=== PATIENT | female | born 1945 | race Caucasian/White ===

== ENCOUNTER 2017-01-06 22:41 | Emergency (ER) | payer MEDICARE, MEDICAID ==
[~2017-01-06] VITALS: Ht 167.6 cm; Wt 44.0 kg
[~2017-01-06 22:41] MED LIST: ATOR-2 PO; BACL-19 PO; CAPT25TA3 PO; CARB200T4 PO; CEFU500T PO; CLOP75TA52 PO; FENO145T13 PO; GABA300C10 PO; HYDR-3245 PO; HYDR2TAB29 PO; LANS30TA6 PO; MECL12.52 PO; MELO15TA24 PO; METH4TAB2 PO; METH5TAB6 PO; METO25TA35 PO; NITR100C56 PO; OXYC15TA PO; PROP120C3 PO; SERT100T5 PO; SOLI5TAB2 PO
[2017-01-06] MEDS ORDERED: MORPHINE SULFATE 4 MG/ML, 1ML IVPush PRN (23:00)
[2017-01-06] MEDS ORDERED: MAALOX/HYOSCYAMINE/LIDOCAINE 45 ML BTL PO ONE (23:00)
[2017-01-06] MEDS ORDERED: ONDANSETRON 2MG/ML, 2ML IVPush ONE (23:00)
[2017-01-06] MEDS ORDERED: MAALOX/HYOSCYAMINE/LIDOCAINE 45 ML BTL ONE (23:03)
[2017-01-06] MEDS ORDERED: ONDANSETRON 2MG/ML, 2ML ONE (23:03)
[2017-01-06 23:14] LABS: HEMATOCRIT 48.2 % (34.6-47.8); HEMOGLOBIN 15.8 g/dL (11.7-16.4); WHITE BLOOD COUNT 7.4 x10^3/uL (3.4-10)
[2017-01-06 23:23] LABS: BLOOD UREA NITROGEN 15 mg/dL (7-18)
[2017-01-06 23:28] LABS: ASPARTATE AMINO TRANSFERASE 28 U/L (15-37); IS PT STATUS REG ER OR PRE ER? YES
[2017-01-06] MEDS ORDERED: SULF1TAB24 PO (23:34)
[2017-01-06] MEDS ORDERED: CLOP75TA52 PO (23:34)
[2017-01-07] MEDS ORDERED: OMNIPAQUE 350 MG/ML, 100ML BOTTLE ONE (00:02)
[2017-01-07] MEDS ORDERED: HYDROmorphone 1 MG/ML, 1ML ONE (00:48)
[2017-01-07] MEDS ORDERED: HYDROmorphone 1 MG/ML, 1ML IV ONE (01:00)
[2017-01-07] MEDS ORDERED: SODIUM CHLORIDE 0.9%, 500ML IVBOLUS ONE (01:00)
[2017-01-07] MEDS ORDERED: FAMOTIDINE 20 MG/2 ML ONE (01:22)
[2017-01-07] MEDS ORDERED: ONDANSETRON 2MG/ML, 2ML ONE (01:22)
[2017-01-07] MEDS ORDERED: FAMOTIDINE 20 MG/2 ML IVPush ONE (01:30)
[2017-01-07] MEDS ORDERED: ONDANSETRON 2MG/ML, 2ML IVPush ONE (01:30)
[2017-01-07 01:32] VITALS: BP 110/61
== END 2017-01-07 02:15 | disposition home or self-care (01) ==
LOC: ED 23:16
DX: K29.00 Acute gastritis without bleeding (principal); E87.1 Hypo-osmolality and hyponatremia; G89.29 Other chronic pain; M54.9 Dorsalgia, unspecified; I10 Essential (primary) hypertension; Z86.73 Personal history of transient ischemic attack (TIA), and cerebral infarction without residual deficits; Z88.5 Allergy status to narcotic agent; Z88.6 Allergy status to analgesic agent; F17.200 Nicotine dependence, unspecified, uncomplicated
CPT/HCPCS: 36415; 71010; 71275; 80053; 83690; 84484; 85025; 93005; 96361; 96374; 96375; 96376; 99285; J1170; J2405; J7040; Q9967; S0028

== ENCOUNTER 2017-04-07 12:12 | Inpatient (IN) | payer MEDICARE, MEDICAID ==
[~2017-04-07] VITALS: Ht 167.6 cm; Wt 60.3 kg
[~2017-04-07 12:12] MED LIST changes: +SULF1TAB24 PO
[2017-04-07] MEDS ORDERED: FLUCONAZOLE 200 MG TABLET PO SCH (13:00)
[2017-04-07] MEDS ORDERED: SODIUM CHLORIDE FLUSH 10ML SYR IVF ONE (13:00)
[2017-04-07 13:07] LABS: BASOPHILS % (AUTO) 0 % (0-1); EOSINOPHILS % (AUTO) 0 % (1-7); LYMPHOCYTES # (AUTO) 0.78 x10^3/uL (1-3.4); LYMPHOCYTES % (AUTO) 8 % (22-44); MD NO; MEAN CORPUSCULAR HEMOGLOBIN 33.1 pg (27.0-34.8); MEAN CORPUSCULAR HGB CONC 33.6 g/dL (32.4-35.8); MEAN CORPUSCULAR VOLUME 98.5 fL (80-100); MEAN PLATELET VOLUME 10.2 fL (7.4-10.4); MONOCYTES # (AUTO) 0.41 x10^3/uL (0.2-0.8); MONOCYTES % (AUTO) 4 % (2-9); NEUTROPHILS # (AUTO) 8.13 x10^3/uL (1.8-6.8); NEUTROPHILS % (AUTO) 87 % (42-75); PLATELET COUNT 217 x10^3/uL (130-400); RED CELL DISTRIBUTION WIDTH 18.3 % (9.6-15.2)
[2017-04-07 13:14] LABS: INTERNATIONAL NORMALIZED RATIO 1.34 (0.93-1.1); PROTHROMBIN TIME 13.7 Seconds (9.6-11.5)
[2017-04-07 13:18] LABS: ALANINE AMINOTRANSFERASE 173 U/L (12-78); ALBUMIN 2.2 g/dL (3.4-5.0); ANION GAP 10 mmol/L (5-15); CALCIUM 7.9 mg/dL (8.5-10.1); CHLORIDE 97 mmol/L (98-107); CREATININE 0.38 mg/dL (0.55-1.02)
[2017-04-07 13:22] LABS: ALKALINE PHOSPHATASE 95 U/L (45-117); BILIRUBIN,TOTAL 2.9 mg/dL (0.2-1.0); TOTAL PROTEIN 5.8 g/dL (6.4-8.2); TROPONIN I 0.042 ng/mL (0.000-0.045)
[2017-04-07] MEDS ORDERED: CEFTRIAXONE PMX 1GM/50ML 50 ML IVPB ONE (15:00)
[2017-04-07] MEDS ORDERED: AZITHROMYCIN 500 MG in SODIUM CHLORIDE 0.9% 250 ML IVPB ONE (15:00)
[2017-04-07 15:09] LABS: CLOSTRIDIUM DIFFICILE ANTIGEN NEGATIVE; CLOSTRIDIUM DIFFICILE TOXIN NEGATIVE (Negative)
[2017-04-07] MEDS ORDERED: CEFTRIAXONE PMX 1GM/50ML 50 ML ONE (15:14)
[2017-04-07 16:40] VITALS: BP 147/82
[2017-04-07 17:00] VITALS: BP 147/82
[2017-04-07] MEDS ORDERED: hydrALAzine 20 MG/ML, 1ML IVPush PRN (17:00)
[2017-04-07] MEDS ORDERED: ONDANSETRON 2MG/ML, 2ML IVPush PRN (17:00)
[2017-04-07] MEDS: NYSTATIN TOPICAL POWDER 15GM TP SCH ×3 (17:00→23:07)
[2017-04-07] MEDS: LACTATED RINGERS 1,000 ML IV SCH (17:00)
[2017-04-07] MEDS ORDERED: DIPHENOXYLATE/ATROPINE TABLET PO PRN (17:00)
[2017-04-07] MEDS ORDERED: ACETAMINOPHEN 325 MG TABLET PO PRN (17:00)
[2017-04-07] MEDS: ENOXAPARIN 40 MG/0.4 ML SQ SCH (17:34)
[2017-04-07] MEDS ORDERED: ALBUTEROL/IPRATROPIUM 2.5MG/0.5MG, 3 ML NPPB PRN (19:30)
[2017-04-07] MEDS: MECLIZINE 12.5 MG TABLET PO SCH (20:47)
[2017-04-07] MEDS: ATORVASTATIN 80 MG TABLET PO SCH (20:47)
[2017-04-07] MEDS: BACLOFEN 10 MG TABLET PO SCH (20:47)
[2017-04-07] MEDS: CARBAMAZEPINE 200 MG TABLET PO SCH (20:48)
[2017-04-07] MEDS: GABAPENTIN 300 MG CAPSULE PO SCH (20:50)
[2017-04-07] MEDS: METOPROLOL TARTRATE 25 MG TABLET PO SCH (20:51)
[2017-04-07 20:52] VITALS: BP 127/67
[2017-04-07] MEDS ORDERED: OMEPRAZOLE 20 MG CAPSULE.DR PO SCH (21:00)
[2017-04-07 21:23] LABS: CULTURE INDICATED? YES; MICROSCOPIC INDICATED
[2017-04-07 23:04] VITALS: BP 139/61
[2017-04-08] MEDS: CEFTRIAXONE PMX 1GM/50ML 50 ML IV SCH ×2 (01:56→12:11)
[2017-04-08 02:00] VITALS: BP 135/74
[2017-04-08 06:11] LABS: BASOPHILS # (AUTO) 0.02 x10^3/uL (0-0.1); BASOPHILS % (AUTO) 0 % (0-1); EOSINOPHILS % (AUTO) 0 % (1-7); LYMPHOCYTES # (AUTO) 0.75 x10^3/uL (1-3.4); LYMPHOCYTES % (AUTO) 9 % (22-44); MD NO; MEAN CORPUSCULAR HEMOGLOBIN 33.1 pg (27.0-34.8); MEAN CORPUSCULAR HGB CONC 33.5 g/dL (32.4-35.8); MEAN CORPUSCULAR VOLUME 98.6 fL (80-100); MEAN PLATELET VOLUME 10.6 fL (7.4-10.4); MONOCYTES # (AUTO) 0.49 x10^3/uL (0.2-0.8); MONOCYTES % (AUTO) 6 % (2-9); NEUTROPHILS # (AUTO) 6.93 x10^3/uL (1.8-6.8); NEUTROPHILS % (AUTO) 85 % (42-75); PLATELET COUNT 205 x10^3/uL (130-400); RED BLOOD COUNT 4.46 x10^6/uL (3.82-5.3)
[2017-04-08 06:22] LABS: ANION GAP 11 mmol/L (5-15); CHLORIDE 97 mmol/L (98-107)
[2017-04-08 06:27] LABS: ALANINE AMINOTRANSFERASE 167 U/L (12-78); ALKALINE PHOSPHATASE 92 U/L (45-117); BILIRUBIN,TOTAL 2.1 mg/dL (0.2-1.0); CREATININE 0.37 mg/dL (0.55-1.02); TOTAL PROTEIN 5.4 g/dL (6.4-8.2)
[2017-04-08] MEDS: OXYcodone IR 5MG TABLET PO PRN ×2 (06:42→16:05)
[2017-04-08] MEDS: ALBUTEROL/IPRATROPIUM 2.5MG/0.5MG, 3 ML NPPB SCH ×2 (06:53→20:30)
[2017-04-08 06:55] VITALS: BP 145/73
[2017-04-08] MEDS ORDERED: POTASSIUM PHOSPHATE 44 MEQ in SODIUM CHLORIDE 0.9% 500 ML IV ONE (07:30)
[2017-04-08] MEDS ORDERED: MAGNESIUM SULFATE PMX 2GM/50ML 50 ML IV ONE (07:30)
[2017-04-08] MEDS: NICOTINE 21 MG/24 HR PATCH.TD24 TD SCH (08:01)
[2017-04-08] MEDS: CARBAMAZEPINE 200 MG TABLET PO SCH ×2 (08:02→20:50)
[2017-04-08] MEDS: BACLOFEN 10 MG TABLET PO SCH ×2 (08:02→20:50)
[2017-04-08] MEDS: CLOPIDOGREL 75 MG TABLET PO SCH (08:02)
[2017-04-08] MEDS: OMEPRAZOLE 20 MG CAPSULE.DR PO SCH ×2 (08:02→16:05)
[2017-04-08] MEDS: GABAPENTIN 300 MG CAPSULE PO SCH ×2 (08:02→20:50)
[2017-04-08] MEDS: METOPROLOL TARTRATE 25 MG TABLET PO SCH ×2 (08:02→20:50)
[2017-04-08] MEDS: MECLIZINE 12.5 MG TABLET PO SCH ×3 (08:02→20:49)
[2017-04-08] MEDS: SERTRALINE 100MG TABLET PO SCH (08:02)
[2017-04-08] MEDS: NYSTATIN TOPICAL POWDER 15GM TP SCH ×3 (08:02→20:49)
[2017-04-08] MEDS: FENOFIBRATE 145 MG TABLET PO SCH (08:02)
[2017-04-08] MEDS: TEMPLATE NON-FORMULARY MED. (Solifenacin Succinate** (Vesicare**) 5 MG) PO SCH (09:00)
[2017-04-08] MEDS ORDERED: ALBUTEROL/IPRATROPIUM 2.5MG/0.5MG, 3 ML NPPB SCH (09:00)
[2017-04-08 12:54] VITALS: BP 116/65
[2017-04-08] MEDS ORDERED: FLUCONAZOLE 200 MG TABLET PO ONE (13:00)
[2017-04-08] MEDS: ENOXAPARIN 40 MG/0.4 ML SQ SCH (16:05)
[2017-04-08] MEDS: LACTATED RINGERS 1,000 ML IV SCH (17:32)
[2017-04-08 20:13] VITALS: BP 117/69
[2017-04-08] MEDS: ATORVASTATIN 80 MG TABLET PO SCH (20:50)
[2017-04-09] MEDS: CEFTRIAXONE PMX 1GM/50ML 50 ML IV SCH (01:06)
[2017-04-09 02:06] VITALS: BP 96/57
[2017-04-09 06:36] VITALS: BP 151/76
[2017-04-09] MEDS: LACTATED RINGERS 1,000 ML IV SCH (07:00)
[2017-04-09 07:45] VITALS: BP 149/86
[2017-04-09] MEDS: METOPROLOL TARTRATE 25 MG TABLET PO SCH ×2 (08:15→20:58)
[2017-04-09] MEDS: NYSTATIN TOPICAL POWDER 15GM TP SCH ×3 (08:15→21:23)
[2017-04-09] MEDS: BACLOFEN 10 MG TABLET PO SCH ×2 (08:15→20:58)
[2017-04-09] MEDS: MECLIZINE 12.5 MG TABLET PO SCH ×3 (08:15→20:57)
[2017-04-09] MEDS: CLOPIDOGREL 75 MG TABLET PO SCH (08:15)
[2017-04-09] MEDS: OXYcodone IR 5MG TABLET PO PRN (08:15)
[2017-04-09] MEDS: SERTRALINE 100MG TABLET PO SCH (08:15)
[2017-04-09] MEDS: GABAPENTIN 300 MG CAPSULE PO SCH ×2 (08:15→20:58)
[2017-04-09] MEDS: CARBAMAZEPINE 200 MG TABLET PO SCH ×2 (08:15→20:58)
[2017-04-09] MEDS: TEMPLATE NON-FORMULARY MED. (Solifenacin Succinate** (Vesicare**) 5 MG) PO SCH (08:16)
[2017-04-09] MEDS: OMEPRAZOLE 20 MG CAPSULE.DR PO SCH ×2 (08:16→16:54)
[2017-04-09] MEDS: NICOTINE 21 MG/24 HR PATCH.TD24 TD SCH (08:16)
[2017-04-09] MEDS: FENOFIBRATE 145 MG TABLET PO SCH (08:21)
[2017-04-09] MEDS: ALBUTEROL/IPRATROPIUM 2.5MG/0.5MG, 3 ML NPPB SCH ×2 (09:40→19:39)
[2017-04-09] MEDS: FLUTICASONE/VILANTEROL 100-25MCG/INH INH SCH (10:16)
[2017-04-09 10:45] LABS: GAMMA GLUTAMYL TRANSPEPTIDASE 174 U/L (5-55)
[2017-04-09 11:00] LABS: CREATINE KINASE, TOTAL 1363 U/L (26-192)
[2017-04-09] MEDS ORDERED: INSULIN ASPART 100 UNITS/ML, PEN SQ-INSULIN STA (12:24)
[2017-04-09 14:25] VITALS: BP 112/68
[2017-04-09] MEDS: SODIUM CHLORIDE 0.9% 1,000 ML IV SCH (16:00)
[2017-04-09] MEDS: ENOXAPARIN 40 MG/0.4 ML SQ SCH (16:54)
[2017-04-09 20:00] VITALS: BP 133/73
[2017-04-09] MEDS: ATORVASTATIN 80 MG TABLET PO SCH (20:58)
[2017-04-10 00:38] VITALS: BP 138/80
[2017-04-10] MEDS: CEFTRIAXONE PMX 1GM/50ML 50 ML IV SCH ×2 (00:46→09:24)
[2017-04-10] MEDS: SODIUM CHLORIDE 0.9% 1,000 ML IV SCH ×3 (00:47→18:27)
[2017-04-10] MEDS: OXYcodone IR 5MG TABLET PO PRN (06:05)
[2017-04-10 06:45] VITALS: BP 163/80
[2017-04-10 08:10] LABS: ALANINE AMINOTRANSFERASE 136 U/L (12-78); ALBUMIN 1.8 g/dL (3.4-5.0); ANION GAP 8 mmol/L (5-15); CALCIUM 7.3 mg/dL (8.5-10.1); CHLORIDE 98 mmol/L (98-107)
[2017-04-10 08:12] LABS: ALKALINE PHOSPHATASE 91 U/L (45-117); BILIRUBIN,TOTAL 1.6 mg/dL (0.2-1.0); TOTAL PROTEIN 5.2 g/dL (6.4-8.2)
[2017-04-10] MEDS: OMEPRAZOLE 20 MG CAPSULE.DR PO SCH ×2 (08:13→18:23)
[2017-04-10] MEDS: FLUTICASONE/VILANTEROL 100-25MCG/INH INH SCH (08:13)
[2017-04-10] MEDS: TEMPLATE NON-FORMULARY MED. (Solifenacin Succinate** (Vesicare**) 5 MG) PO SCH (09:00)
[2017-04-10] MEDS: CARBAMAZEPINE 200 MG TABLET PO SCH ×2 (09:23→21:10)
[2017-04-10] MEDS: METOPROLOL TARTRATE 25 MG TABLET PO SCH ×2 (09:23→21:10)
[2017-04-10] MEDS: FENOFIBRATE 145 MG TABLET PO SCH (09:23)
[2017-04-10] MEDS: SERTRALINE 100MG TABLET PO SCH (09:23)
[2017-04-10] MEDS: GABAPENTIN 300 MG CAPSULE PO SCH ×2 (09:23→21:10)
[2017-04-10] MEDS: CLOPIDOGREL 75 MG TABLET PO SCH (09:23)
[2017-04-10] MEDS: BACLOFEN 10 MG TABLET PO SCH ×2 (09:24→21:11)
[2017-04-10] MEDS: MECLIZINE 12.5 MG TABLET PO SCH ×3 (09:24→21:10)
[2017-04-10] MEDS: NICOTINE 21 MG/24 HR PATCH.TD24 TD SCH (09:24)
[2017-04-10] MEDS: NYSTATIN TOPICAL POWDER 15GM TP SCH ×3 (09:25→21:11)
[2017-04-10] MEDS: ALBUTEROL/IPRATROPIUM 2.5MG/0.5MG, 3 ML NPPB SCH (09:37)
[2017-04-10] MEDS ORDERED: POTASSIUM PHOSPHATE 44 MEQ in SODIUM CHLORIDE 0.9% 500 ML IV ONE (10:30)
[2017-04-10] MEDS ORDERED: MAGNESIUM SULFATE PMX 2GM/50ML 50 ML IV ONE (11:00)
[2017-04-10] MEDS: POTASSIUM CHLORIDE 20 MEQ TAB.ER.PRT PO SCH ×2 (11:57→18:23)
[2017-04-10 12:56] VITALS: BP 125/68
[2017-04-10] MEDS: ENOXAPARIN 40 MG/0.4 ML SQ SCH (18:23)
[2017-04-10 20:05] VITALS: BP 131/72
[2017-04-10] MEDS: ATORVASTATIN 80 MG TABLET PO SCH (21:11)
[2017-04-10] MEDS ORDERED: OMNIPAQUE 350 MG/ML, 100ML BOTTLE ONE (22:05)
[2017-04-11 01:34] VITALS: BP 153/95
[2017-04-11] MEDS: SODIUM CHLORIDE 0.9% 1,000 ML IV SCH (02:30)
[2017-04-11 05:22] LABS: BASOPHILS % (AUTO) 0 % (0-1); EOSINOPHILS % (AUTO) 0 % (1-7); LYMPHOCYTES # (AUTO) 1.06 x10^3/uL (1-3.4); LYMPHOCYTES % (AUTO) 11 % (22-44); MD NO; MEAN CORPUSCULAR HEMOGLOBIN 32.9 pg (27.0-34.8); MEAN CORPUSCULAR HGB CONC 33.2 g/dL (32.4-35.8); MEAN CORPUSCULAR VOLUME 99.2 fL (80-100); MEAN PLATELET VOLUME 10.6 fL (7.4-10.4); MONOCYTES # (AUTO) 0.24 x10^3/uL (0.2-0.8); MONOCYTES % (AUTO) 2 % (2-9); NEUTROPHILS # (AUTO) 8.81 x10^3/uL (1.8-6.8); NEUTROPHILS % (AUTO) 87 % (42-75); PLATELET COUNT 182 x10^3/uL (130-400); RED BLOOD COUNT 4.54 x10^6/uL (3.82-5.3); RED CELL DISTRIBUTION WIDTH 17.1 % (9.6-15.2)
[2017-04-11 05:25] LABS: ALBUMIN 1.8 g/dL (3.4-5.0); CHLORIDE 102 mmol/L (98-107)
[2017-04-11 05:43] LABS: ALANINE AMINOTRANSFERASE 146 U/L (12-78); ALKALINE PHOSPHATASE 108 U/L (45-117); ANION GAP 5 mmol/L (5-15); BILIRUBIN,TOTAL 1.8 mg/dL (0.2-1.0); CALCIUM 7.7 mg/dL (8.5-10.1); CREATINE KINASE, TOTAL 1195 U/L (26-192); CREATININE 0.22 mg/dL (0.55-1.02); TOTAL PROTEIN 5.5 g/dL (6.4-8.2)
[2017-04-11 07:21] VITALS: BP 156/97
[2017-04-11] MEDS: TEMPLATE NON-FORMULARY MED. (Solifenacin Succinate** (Vesicare**) 5 MG) PO SCH (09:00)
[2017-04-11] MEDS: OXYcodone IR 5MG TABLET PO PRN ×2 (09:07→15:41)
[2017-04-11] MEDS: GABAPENTIN 300 MG CAPSULE PO SCH ×2 (09:08→21:43)
[2017-04-11] MEDS: CLOPIDOGREL 75 MG TABLET PO SCH (09:08)
[2017-04-11] MEDS: OMEPRAZOLE 20 MG CAPSULE.DR PO SCH ×2 (09:08→18:17)
[2017-04-11] MEDS: SERTRALINE 100MG TABLET PO SCH (09:08)
[2017-04-11] MEDS: POTASSIUM CHLORIDE 20 MEQ TAB.ER.PRT PO SCH (09:08)
[2017-04-11] MEDS: NYSTATIN TOPICAL POWDER 15GM TP SCH ×3 (09:09→21:43)
[2017-04-11] MEDS: NICOTINE 21 MG/24 HR PATCH.TD24 TD SCH (09:10)
[2017-04-11] MEDS: CARBAMAZEPINE 200 MG TABLET PO SCH ×2 (09:10→21:43)
[2017-04-11] MEDS: FLUTICASONE/VILANTEROL 100-25MCG/INH INH SCH (09:10)
[2017-04-11] MEDS: FENOFIBRATE 145 MG TABLET PO SCH (09:11)
[2017-04-11] MEDS: METOPROLOL TARTRATE 25 MG TABLET PO SCH ×2 (09:11→21:44)
[2017-04-11] MEDS: MECLIZINE 12.5 MG TABLET PO SCH ×3 (09:11→21:44)
[2017-04-11] MEDS: BACLOFEN 10 MG TABLET PO SCH ×2 (09:12→21:44)
[2017-04-11] MEDS ORDERED: BUMETANIDE 0.25 MG/ML, 4ML IV SCH (10:00)
[2017-04-11] MEDS ORDERED: HYDROmorphone 2 MG/ML, 1ML IVPush PRN (10:00)
[2017-04-11] MEDS ORDERED: VANCOMYCIN PER PHARMACY MC PRN (10:30)
[2017-04-11] MEDS ORDERED: PHARMACOKINETIC MONITORING MC PRN (10:30)
[2017-04-11] MEDS: ALBUMIN HUMAN 25% 50 ML IV ONE ×2 (11:25→12:39)
[2017-04-11] MEDS: FUROSEMIDE 20 MG/2 ML IV ONE ×2 (11:25→12:39)
[2017-04-11 12:39] VITALS: BP 109/73
[2017-04-11 13:25] VITALS: BP 110/75
[2017-04-11] MEDS: PIPERACILLIN/TAZO/PMX 3.375GM 50 ML IV SCH ×2 (15:41→21:43)
[2017-04-11] MEDS: METRONIDAZOLE PMX 500MG/100ML 100 ML IV SCH (16:12)
[2017-04-11] MEDS: NEUTRA PHOS K 250 MG TABLET PO SCH ×2 (18:17→21:43)
[2017-04-11] MEDS: VANCOMYCIN 1,200 MG in SODIUM CHLORIDE 0.9% 250 ML IV SCH (18:17)
[2017-04-11] MEDS: ENOXAPARIN 40 MG/0.4 ML SQ SCH (18:17)
[2017-04-11 18:48] VITALS: BP 107/71
[2017-04-11 19:57] VITALS: BP 110/74
[2017-04-11] MEDS: ATORVASTATIN 80 MG TABLET PO SCH (21:44)
[2017-04-12] MEDS: METRONIDAZOLE PMX 500MG/100ML 100 ML IV SCH ×3 (00:28→16:00)
[2017-04-12] MEDS: OXYcodone IR 5MG TABLET PO PRN ×3 (01:19→16:26)
[2017-04-12 03:18] LABS: ALBUMIN 1.8 g/dL (3.4-5.0); ANION GAP 5 mmol/L (5-15); CALCIUM 7.4 mg/dL (8.5-10.1); CHLORIDE 101 mmol/L (98-107)
[2017-04-12] MEDS: PIPERACILLIN/TAZO/PMX 3.375GM 50 ML IV SCH ×4 (03:18→22:58)
[2017-04-12 03:28] LABS: ALANINE AMINOTRANSFERASE 134 U/L (12-78); ALKALINE PHOSPHATASE 88 U/L (45-117); FREE T4 (FREE THYROXINE) 0.72 ng/dL (0.76-1.46); TOTAL PROTEIN 5.2 g/dL (6.4-8.2)
[2017-04-12 04:11] VITALS: BP 132/81
[2017-04-12 07:20] VITALS: BP 137/85
[2017-04-12] MEDS: SERTRALINE 100MG TABLET PO SCH (08:10)
[2017-04-12] MEDS: METOPROLOL TARTRATE 25 MG TABLET PO SCH ×2 (08:10→21:16)
[2017-04-12] MEDS: BACLOFEN 10 MG TABLET PO SCH ×2 (08:10→21:13)
[2017-04-12] MEDS: FLUTICASONE/VILANTEROL 100-25MCG/INH INH SCH (08:10)
[2017-04-12] MEDS: CARBAMAZEPINE 200 MG TABLET PO SCH ×2 (08:11→21:13)
[2017-04-12] MEDS: NICOTINE 21 MG/24 HR PATCH.TD24 TD SCH (08:11)
[2017-04-12] MEDS: OMEPRAZOLE 20 MG CAPSULE.DR PO SCH ×2 (08:11→19:22)
[2017-04-12] MEDS: NYSTATIN TOPICAL POWDER 15GM TP SCH ×3 (08:11→21:14)
[2017-04-12] MEDS: GABAPENTIN 300 MG CAPSULE PO SCH ×2 (08:12→21:13)
[2017-04-12] MEDS: CLOPIDOGREL 75 MG TABLET PO SCH (08:12)
[2017-04-12] MEDS: NEUTRA PHOS K 250 MG TABLET PO SCH ×3 (08:12→21:13)
[2017-04-12] MEDS: FENOFIBRATE 145 MG TABLET PO SCH (08:12)
[2017-04-12] MEDS: TEMPLATE NON-FORMULARY MED. (Solifenacin Succinate** (Vesicare**) 5 MG) PO SCH (08:13)
[2017-04-12] MEDS: MECLIZINE 12.5 MG TABLET PO SCH ×3 (08:13→21:13)
[2017-04-12 12:25] VITALS: BP 108/77
[2017-04-12] MEDS ORDERED: POTASSIUM PHOSPHATE 44 MEQ in SODIUM CHLORIDE 0.9% 500 ML IV ONE (14:00)
[2017-04-12] MEDS ORDERED: MAGNESIUM SULFATE PMX 4GM/100M 100 ML IV ONE (14:00)
[2017-04-12] MEDS: VANCOMYCIN 1,200 MG in SODIUM CHLORIDE 0.9% 250 ML IV SCH (19:00)
[2017-04-12 19:08] VITALS: BP 93/53
[2017-04-12] MEDS: ENOXAPARIN 40 MG/0.4 ML SQ SCH (19:22)
[2017-04-12] MEDS: ATORVASTATIN 80 MG TABLET PO SCH (21:13)
[2017-04-13] MEDS: METRONIDAZOLE PMX 500MG/100ML 100 ML IV SCH ×2 (00:18→08:37)
[2017-04-13 03:38] VITALS: BP 127/75
[2017-04-13] MEDS: PIPERACILLIN/TAZO/PMX 3.375GM 50 ML IV SCH ×3 (04:01→15:56)
[2017-04-13 05:49] LABS: CHLORIDE 99 mmol/L (98-107)
[2017-04-13 06:28] LABS: ANION GAP 10 mmol/L (5-15); CALCIUM 7.8 mg/dL (8.5-10.1); CREATINE KINASE, TOTAL 1241 U/L (26-192); CREATININE 0.21 mg/dL (0.55-1.02)
[2017-04-13] MEDS: SERTRALINE 100MG TABLET PO SCH (08:37)
[2017-04-13] MEDS: CLOPIDOGREL 75 MG TABLET PO SCH (08:37)
[2017-04-13] MEDS: NEUTRA PHOS K 250 MG TABLET PO SCH ×3 (08:37→20:59)
[2017-04-13] MEDS: GABAPENTIN 300 MG CAPSULE PO SCH (08:37)
[2017-04-13] MEDS: OMEPRAZOLE 20 MG CAPSULE.DR PO SCH ×2 (08:37→16:04)
[2017-04-13] MEDS: CARBAMAZEPINE 200 MG TABLET PO SCH ×2 (08:38→20:58)
[2017-04-13] MEDS: BACLOFEN 10 MG TABLET PO SCH ×2 (08:38→20:58)
[2017-04-13] MEDS: FLUTICASONE/VILANTEROL 100-25MCG/INH INH SCH (08:39)
[2017-04-13] MEDS: NICOTINE 21 MG/24 HR PATCH.TD24 TD SCH (08:41)
[2017-04-13] MEDS: TEMPLATE NON-FORMULARY MED. (Solifenacin Succinate** (Vesicare**) 5 MG) PO SCH (08:42)
[2017-04-13] MEDS: OXYcodone IR 5MG TABLET PO PRN ×2 (08:53→20:58)
[2017-04-13] MEDS: METOPROLOL TARTRATE 25 MG TABLET PO SCH ×2 (09:00→21:01)
[2017-04-13] MEDS: FENOFIBRATE 145 MG TABLET PO SCH (10:15)
[2017-04-13] MEDS: NYSTATIN TOPICAL POWDER 15GM TP SCH ×3 (10:15→20:59)
[2017-04-13] MEDS: MECLIZINE 12.5 MG TABLET PO SCH ×3 (10:15→20:58)
[2017-04-13 13:15] VITALS: BP 131/76
[2017-04-13] MEDS: ENOXAPARIN 40 MG/0.4 ML SQ SCH (16:07)
[2017-04-13] MEDS: VANCOMYCIN 1,200 MG in SODIUM CHLORIDE 0.9% 250 ML IV SCH (18:19)
[2017-04-13] MEDS: ATORVASTATIN 80 MG TABLET PO SCH (20:58)
[2017-04-13 21:00] VITALS: BP 115/67
[2017-04-14] MEDS: GABAPENTIN 300 MG CAPSULE PO SCH ×3 (00:34→21:37)
[2017-04-14] MEDS: PIPERACILLIN/TAZO/PMX 3.375GM 50 ML IV SCH ×4 (00:34→20:08)
[2017-04-14] MEDS ORDERED: ALBUTEROL/IPRATROPIUM 2.5MG/0.5MG, 3 ML ONE (00:49)
[2017-04-14] MEDS: ALBUTEROL/IPRATROPIUM 2.5MG/0.5MG, 3 ML NPPB SCH ×6 (00:55→19:08)
[2017-04-14 01:39] VITALS: BP 139/72
[2017-04-14 01:49] LABS: BASOPHILS # (AUTO) 0.01 x10^3/uL (0-0.1); BASOPHILS % (AUTO) 0 % (0-1); EOSINOPHILS # (AUTO) 0.01 x10^3/uL (0-0.4); EOSINOPHILS % (AUTO) 0 % (1-7); LYMPHOCYTES # (AUTO) 0.99 x10^3/uL (1-3.4); LYMPHOCYTES % (AUTO) 11 % (22-44); MD NO; MEAN CORPUSCULAR HEMOGLOBIN 32.5 pg (27.0-34.8); MEAN CORPUSCULAR HGB CONC 32.9 g/dL (32.4-35.8); MEAN CORPUSCULAR VOLUME 98.7 fL (80-100); MEAN PLATELET VOLUME 9.8 fL (7.4-10.4); MONOCYTES # (AUTO) 0.55 x10^3/uL (0.2-0.8); MONOCYTES % (AUTO) 6 % (2-9); NEUTROPHILS # (AUTO) 7.19 x10^3/uL (1.8-6.8); NEUTROPHILS % (AUTO) 82 % (42-75); PLATELET COUNT 222 x10^3/uL (130-400); RED BLOOD COUNT 4.06 x10^6/uL (3.82-5.3); RED CELL DISTRIBUTION WIDTH 16.6 % (9.6-15.2)
[2017-04-14] MEDS: OXYcodone IR 5MG TABLET PO PRN ×4 (05:42→22:40)
[2017-04-14 07:45] VITALS: BP 137/81
[2017-04-14] MEDS: OMEPRAZOLE 20 MG CAPSULE.DR PO SCH ×2 (07:51→16:33)
[2017-04-14 08:25] LABS: BASOPHILS % (AUTO) 0 % (0-1); EOSINOPHILS % (AUTO) 0 % (1-7); LYMPHOCYTES # (AUTO) 0.81 x10^3/uL (1-3.4); LYMPHOCYTES % (AUTO) 7 % (22-44); MD NO; MEAN CORPUSCULAR HEMOGLOBIN 32.5 pg (27.0-34.8); MEAN CORPUSCULAR HGB CONC 33.1 g/dL (32.4-35.8); MEAN CORPUSCULAR VOLUME 98.3 fL (80-100); MEAN PLATELET VOLUME 10.2 fL (7.4-10.4); MONOCYTES # (AUTO) 0.33 x10^3/uL (0.2-0.8); MONOCYTES % (AUTO) 3 % (2-9); NEUTROPHILS # (AUTO) 10.33 x10^3/uL (1.8-6.8); NEUTROPHILS % (AUTO) 90 % (42-75); PLATELET COUNT 218 x10^3/uL (130-400); RED CELL DISTRIBUTION WIDTH 16.8 % (9.6-15.2)
[2017-04-14 08:33] LABS: ALANINE AMINOTRANSFERASE 146 U/L (12-78); ALBUMIN 1.9 g/dL (3.4-5.0); ANION GAP 7 mmol/L (5-15); CALCIUM 7.5 mg/dL (8.5-10.1); CHLORIDE 99 mmol/L (98-107); CREATININE 0.18 mg/dL (0.55-1.02)
[2017-04-14] MEDS: TEMPLATE NON-FORMULARY MED. (Solifenacin Succinate** (Vesicare**) 5 MG) PO SCH (08:43)
[2017-04-14 08:47] LABS: ALKALINE PHOSPHATASE 87 U/L (45-117); BILIRUBIN,TOTAL 1.5 mg/dL (0.2-1.0); CREATINE KINASE, TOTAL 1334 U/L (26-192); TOTAL PROTEIN 5.6 g/dL (6.4-8.2)
[2017-04-14] MEDS: FLUTICASONE/VILANTEROL 100-25MCG/INH INH SCH (08:59)
[2017-04-14] MEDS: SERTRALINE 100MG TABLET PO SCH (09:00)
[2017-04-14] MEDS: MECLIZINE 12.5 MG TABLET PO SCH ×3 (09:00→21:34)
[2017-04-14] MEDS: FENOFIBRATE 145 MG TABLET PO SCH (09:01)
[2017-04-14] MEDS: CARBAMAZEPINE 200 MG TABLET PO SCH ×2 (09:01→21:36)
[2017-04-14] MEDS: BACLOFEN 10 MG TABLET PO SCH ×2 (09:01→21:37)
[2017-04-14] MEDS: NEUTRA PHOS K 250 MG TABLET PO SCH ×3 (09:01→21:34)
[2017-04-14] MEDS: CLOPIDOGREL 75 MG TABLET PO SCH (09:01)
[2017-04-14] MEDS: NICOTINE 21 MG/24 HR PATCH.TD24 TD SCH (09:02)
[2017-04-14] MEDS: METOPROLOL TARTRATE 25 MG TABLET PO SCH ×2 (09:02→21:37)
[2017-04-14] MEDS: NYSTATIN TOPICAL POWDER 15GM TP SCH ×3 (09:04→21:37)
[2017-04-14 12:29] VITALS: BP 105/61
[2017-04-14] MEDS ORDERED: POTASSIUM PHOSPHATE 44 MEQ in SODIUM CHLORIDE 0.9% 500 ML IV ONE (16:30)
[2017-04-14] MEDS: ENOXAPARIN 40 MG/0.4 ML SQ SCH (16:34)
[2017-04-14] MEDS: VANCOMYCIN 1,200 MG in SODIUM CHLORIDE 0.9% 250 ML IV SCH (17:46)
[2017-04-14 19:17] VITALS: BP 146/88
[2017-04-14] MEDS: ATORVASTATIN 80 MG TABLET PO SCH (21:37)
[2017-04-15 00:45] VITALS: BP 128/70
[2017-04-15] MEDS: PIPERACILLIN/TAZO/PMX 3.375GM 50 ML IV SCH ×4 (03:09→20:24)
[2017-04-15] MEDS: OXYcodone IR 5MG TABLET PO PRN ×3 (06:15→22:42)
[2017-04-15 06:50] VITALS: BP 157/93
[2017-04-15] MEDS: OMEPRAZOLE 20 MG CAPSULE.DR PO SCH ×2 (07:30→16:15)
[2017-04-15] MEDS: NICOTINE 21 MG/24 HR PATCH.TD24 TD SCH (08:04)
[2017-04-15] MEDS: NYSTATIN TOPICAL POWDER 15GM TP SCH ×3 (08:04→20:47)
[2017-04-15] MEDS: FLUTICASONE/VILANTEROL 100-25MCG/INH INH SCH (08:11)
[2017-04-15] MEDS: ALBUTEROL/IPRATROPIUM 2.5MG/0.5MG, 3 ML NPPB SCH ×3 (08:20→20:16)
[2017-04-15] MEDS ORDERED: FENTANYL PF 100 MCG/2ML ONE (08:51)
[2017-04-15] MEDS ORDERED: MIDAZOLAM 1 MG/ML, 5ML ONE (08:52)
[2017-04-15] MEDS: CLOPIDOGREL 75 MG TABLET PO SCH (09:00)
[2017-04-15] MEDS: BACLOFEN 10 MG TABLET PO SCH ×2 (09:00→20:46)
[2017-04-15] MEDS: TEMPLATE NON-FORMULARY MED. (Solifenacin Succinate** (Vesicare**) 5 MG) PO SCH (09:00)
[2017-04-15] MEDS: MECLIZINE 12.5 MG TABLET PO SCH ×3 (09:00→20:47)
[2017-04-15] MEDS: CARBAMAZEPINE 200 MG TABLET PO SCH ×2 (09:07→20:45)
[2017-04-15] MEDS: NEUTRA PHOS K 250 MG TABLET PO SCH ×3 (09:07→20:45)
[2017-04-15] MEDS: GABAPENTIN 300 MG CAPSULE PO SCH ×2 (09:07→20:47)
[2017-04-15] MEDS: FENOFIBRATE 145 MG TABLET PO SCH (09:07)
[2017-04-15] MEDS: SERTRALINE 100MG TABLET PO SCH (09:07)
[2017-04-15] MEDS: VANCOMYCIN 1,200 MG in SODIUM CHLORIDE 0.9% 250 ML IV SCH (09:38)
[2017-04-15] MEDS: METOPROLOL TARTRATE 25 MG TABLET PO SCH ×2 (09:38→20:46)
[2017-04-15] MEDS ORDERED: LIDOCAINE 4% TOPICAL SOLUTION 50 ML ONE (12:00)
[2017-04-15] MEDS ORDERED: LIDOCAINE 2%, 20ML ONE (12:00)
[2017-04-15] MEDS ORDERED: LIDOCAINE GEL 2%, 5ML ONE (12:00)
[2017-04-15 13:40] VITALS: BP 154/94
[2017-04-15] MEDS ORDERED: SODIUM BICARBONATE 4.2%, 5ML NPPB SCH (15:00)
[2017-04-15] MEDS: ENOXAPARIN 40 MG/0.4 ML SQ SCH (16:15)
[2017-04-15] MEDS: ACETYLCYSTEINE 20%, 4ML NPPB SCH (20:16)
[2017-04-15 20:27] VITALS: BP 156/91
[2017-04-15] MEDS: ATORVASTATIN 80 MG TABLET PO SCH (20:47)
[2017-04-16 00:58] VITALS: BP 148/77
[2017-04-16] MEDS: PIPERACILLIN/TAZO/PMX 3.375GM 50 ML IV SCH ×3 (02:26→14:00)
[2017-04-16] MEDS: ALBUTEROL/IPRATROPIUM 2.5MG/0.5MG, 3 ML NPPB SCH ×2 (03:00→08:50)
[2017-04-16] MEDS: ACETYLCYSTEINE 20%, 4ML NPPB SCH ×3 (03:00→08:50)
[2017-04-16] MEDS: VANCOMYCIN 1,200 MG in SODIUM CHLORIDE 0.9% 250 ML IV SCH (03:16)
[2017-04-16 07:15] VITALS: BP 155/91
[2017-04-16 07:32] LABS: BASOPHILS % (AUTO) 0 % (0-1); EOSINOPHILS % (AUTO) 0 % (1-7); LYMPHOCYTES # (AUTO) 0.64 x10^3/uL (1-3.4); LYMPHOCYTES % (AUTO) 7 % (22-44); MD NO; MEAN CORPUSCULAR HEMOGLOBIN 32.6 pg (27.0-34.8); MEAN CORPUSCULAR VOLUME 98.9 fL (80-100); MEAN PLATELET VOLUME 9.4 fL (7.4-10.4); MONOCYTES # (AUTO) 0.34 x10^3/uL (0.2-0.8); MONOCYTES % (AUTO) 4 % (2-9); NEUTROPHILS # (AUTO) 8.61 x10^3/uL (1.8-6.8); NEUTROPHILS % (AUTO) 90 % (42-75); PLATELET COUNT 215 x10^3/uL (130-400); RED BLOOD COUNT 3.93 x10^6/uL (3.82-5.3); RED CELL DISTRIBUTION WIDTH 16.6 % (9.6-15.2)
[2017-04-16] MEDS: OXYcodone IR 5MG TABLET PO PRN ×2 (07:42→14:27)
[2017-04-16 08:04] LABS: ALANINE AMINOTRANSFERASE 162 U/L (12-78); ALBUMIN 1.7 g/dL (3.4-5.0); ALKALINE PHOSPHATASE 79 U/L (45-117); CALCIUM 7.5 mg/dL (8.5-10.1); CHLORIDE 102 mmol/L (98-107); CREATININE 0.16 mg/dL (0.55-1.02); TOTAL PROTEIN 5.3 g/dL (6.4-8.2)
[2017-04-16 08:07] LABS: ANION GAP 8 mmol/L (5-15)
[2017-04-16] MEDS: CARBAMAZEPINE 200 MG TABLET PO SCH (08:34)
[2017-04-16] MEDS: OMEPRAZOLE 20 MG CAPSULE.DR PO SCH (08:35)
[2017-04-16] MEDS: SERTRALINE 100MG TABLET PO SCH (08:36)
[2017-04-16] MEDS: FLUTICASONE/VILANTEROL 100-25MCG/INH INH SCH (08:36)
[2017-04-16] MEDS: CLOPIDOGREL 75 MG TABLET PO SCH (08:36)
[2017-04-16] MEDS: BACLOFEN 10 MG TABLET PO SCH (08:36)
[2017-04-16] MEDS: MECLIZINE 12.5 MG TABLET PO SCH (08:36)
[2017-04-16] MEDS: GABAPENTIN 300 MG CAPSULE PO SCH (08:36)
[2017-04-16] MEDS: METOPROLOL TARTRATE 25 MG TABLET PO SCH (08:37)
[2017-04-16] MEDS: TEMPLATE NON-FORMULARY MED. (Solifenacin Succinate** (Vesicare**) 5 MG) PO SCH (08:37)
[2017-04-16] MEDS: NEUTRA PHOS K 250 MG TABLET PO SCH (08:37)
[2017-04-16] MEDS: FENOFIBRATE 145 MG TABLET PO SCH (08:37)
[2017-04-16] MEDS: NYSTATIN TOPICAL POWDER 15GM TP SCH (08:38)
[2017-04-16] MEDS: NICOTINE 21 MG/24 HR PATCH.TD24 TD SCH (08:39)
[2017-04-16] MEDS ORDERED: LEVO500T47 PO (08:44)
[2017-04-16] MEDS ORDERED: BACL-19 PO (08:44)
[2017-04-16] MEDS ORDERED: MAGNESIUM SULFATE PMX 2GM/50ML 50 ML IV ONE (09:00)
[2017-04-16] MEDS ORDERED: POTASSIUM CHLORIDE 20 MEQ TAB.ER.PRT PO ONE ×2 (09:00→15:00)
[2017-04-16 13:50] VITALS: BP 117/73
[2017-04-17] MEDS ORDERED: MECL25TA4 PO (11:02)
== END 2017-04-16 14:55 | DRG 163 ==
LOC: ED 14:52 → EDIP 14:57 → ED 15:07 → 4WST 15:54 → 4NOR 04-11 02:19
PROVIDERS: ADMIT Hospitalist; ATTEND Hospitalist
PROC: 0T9B70Z Drainage of Bladder with Drainage Device, Via Natural or Artificial Opening (ICD-10-PCS; 2017-04-07)
PROC: 0BJQ3ZZ Inspection of Pleura, Percutaneous Approach (ICD-10-PCS; 2017-04-11)
PROC: 0BCJ8ZZ Extirpation of Matter from Left Lower Lung Lobe, Via Natural or Artificial Opening Endoscopic (ICD-10-PCS; principal; 2017-04-15)
DX: J18.9 Pneumonia, unspecified organism (principal); E43 Unspecified severe protein-calorie malnutrition; J96.21 Acute and chronic respiratory failure with hypoxia; I27.20 Pulmonary hypertension, unspecified; J94.2 Hemothorax; E83.39 Other disorders of phosphorus metabolism; E83.42 Hypomagnesemia; I69.354 Hemiplegia and hemiparesis following cerebral infarction affecting left non-dominant side; M62.82 Rhabdomyolysis; E86.9 Volume depletion, unspecified; E87.1 Hypo-osmolality and hyponatremia; J44.0 Chronic obstructive pulmonary disease with (acute) lower respiratory infection; N39.0 Urinary tract infection, site not specified; B37.3 Candidiasis of vulva and vagina; I10 Essential (primary) hypertension; K52.9 Noninfective gastroenteritis and colitis, unspecified; E03.9 Hypothyroidism, unspecified; E78.5 Hyperlipidemia, unspecified; E87.6 Hypokalemia; Z68.21 Body mass index [BMI] 21.0-21.9, adult; Z72.0 Tobacco use; Z87.01 Personal history of pneumonia (recurrent); Z87.11 Personal history of peptic ulcer disease; Z90.710 Acquired absence of both cervix and uterus; Z99.3 Dependence on wheelchair; Z90.711 Acquired absence of uterus with remaining cervical stump; Z98.51 Tubal ligation status; Z88.1 Allergy status to other antibiotic agents; Z88.5 Allergy status to narcotic agent; Z88.8 Allergy status to other drugs, medicaments and biological substances
CPT/HCPCS: 31622; 31624; 36415; 36600; 71010; 74177; 76700; 80048; 80053; 80202; 81001; 82378; 82550; 82553; 82803; 82977; 83735; 83880; 84100; 84134; 84439; 84443; 84484; 85025; 85610; 85730; 86704; 86706; 86708; 86803; 87040; 87046; 87070; 87077; 87086; 87186; 87205; 87324; 87340; 87899; 88112; 88305; 89055; 93005; 93306; 94640; 96365; J0696; J1170; J1650; J2250; J2405; J2543; J3010; J3370; J3490; J7608; J7620; P9047; Q9967; J1940; J3475; J7030; J7040; J7050; J7120

== ENCOUNTER 2017-04-17 08:55 | Inpatient (IN) | payer MEDICARE, MEDICAID ==
[~2017-04-17] VITALS: Ht 167.6 cm; Wt 51.9 kg
[~2017-04-17 08:55] MED LIST changes: +LEVO500T47 PO
[2017-04-17] MEDS ORDERED: DILTIAZEM 5 MG/ML, 5ML ONE (09:14)
[2017-04-17 09:22] LABS: BASOPHILS % (AUTO) 0 % (0-1); EOSINOPHILS % (AUTO) 0 % (1-7); LYMPHOCYTES # (AUTO) 0.92 x10^3/uL (1-3.4); LYMPHOCYTES % (AUTO) 12 % (22-44); MD NO; MEAN CORPUSCULAR HEMOGLOBIN 32.4 pg (27.0-34.8); MEAN CORPUSCULAR HGB CONC 32.9 g/dL (32.4-35.8); MEAN CORPUSCULAR VOLUME 98.4 fL (80-100); MEAN PLATELET VOLUME 9.2 fL (7.4-10.4); MONOCYTES # (AUTO) 0.26 x10^3/uL (0.2-0.8); MONOCYTES % (AUTO) 3 % (2-9); NEUTROPHILS # (AUTO) 6.61 x10^3/uL (1.8-6.8); NEUTROPHILS % (AUTO) 85 % (42-75); PLATELET COUNT 276 x10^3/uL (130-400); RED BLOOD COUNT 4.14 x10^6/uL (3.82-5.3); RED CELL DISTRIBUTION WIDTH 16.5 % (9.6-15.2)
[2017-04-17 09:27] LABS: INTERNATIONAL NORMALIZED RATIO 1.28 (0.93-1.1); PROTHROMBIN TIME 13.1 Seconds (9.6-11.5)
[2017-04-17] MEDS ORDERED: DILTIAZEM 5 MG/ML, 5ML IVPush ONE (09:30)
[2017-04-17] MEDS ORDERED: SODIUM CHLORIDE 0.9%, 500ML IVBOLUS ONE (09:30)
[2017-04-17] MEDS ORDERED: PLEASE ENTER HEIGHT AND WEIGHT MC SCH (09:30)
[2017-04-17] MEDS ORDERED: SODIUM CHLORIDE FLUSH 10ML SYR IVF ONE (09:30)
[2017-04-17 09:34] LABS: ALANINE AMINOTRANSFERASE 201 U/L (12-78); ANION GAP 7 mmol/L (5-15); CALCIUM 7.6 mg/dL (8.5-10.1); CHLORIDE 101 mmol/L (98-107); CREATININE 0.22 mg/dL (0.55-1.02)
[2017-04-17 09:39] LABS: ALKALINE PHOSPHATASE 107 U/L (45-117); TOTAL PROTEIN 5.6 g/dL (6.4-8.2); TROPONIN I 0.075 ng/mL (0.000-0.045)
[2017-04-17] MEDS ORDERED: NS + 40MEQ KCL 1,000 ML IV ONE ×2 (09:39→11:20)
[2017-04-17] MEDS ORDERED: OMNIPAQUE 350 MG/ML, 75ML BOTTLE ONE (10:13)
[2017-04-17 10:46] LABS: O2 FLOW 10 L/min
[2017-04-17] MEDS ORDERED: CEFTRIAXONE PMX 1GM/50ML 50 ML ONE (10:47)
[2017-04-17] MEDS ORDERED: CEFTRIAXONE PMX 2GM/50ML 50 ML ONE (10:49)
[2017-04-17] MEDS ORDERED: CEFTRIAXONE PMX 2GM/50ML 50 ML IV ONE (11:00)
[2017-04-17] MEDS ORDERED: ENOXAPARIN 60 MG/0.6 ML SQ ONE (11:00)
[2017-04-17] MEDS ORDERED: MECL25TA4 PO (11:02)
[2017-04-17] MEDS ORDERED: POLYETHYLENE GLYCOL 17 GM PACKET PO PRN (12:00)
[2017-04-17] MEDS ORDERED: CEFTRIAXONE PMX 1GM/50ML 50 ML IV SCH (12:00)
[2017-04-17] MEDS ORDERED: DOCUSATE 100 MG CAPSULE PO PRN (12:00)
[2017-04-17] MEDS ORDERED: POTASSIUM CHLORIDE 40 MEQ in SODIUM CHLORIDE 0.9% 500 ML IV ONE (12:00)
[2017-04-17] MEDS ORDERED: BISACODYL 10 MG SUPP PR PRN (12:00)
[2017-04-17] MEDS ORDERED: DOXYCYCLINE 100 MG in DEXTROSE 5% 250 ML IV SCH (12:00)
[2017-04-17] MEDS ORDERED: ACETAMINOPHEN 325 MG TABLET PO PRN (12:00)
[2017-04-17] MEDS ORDERED: ONDANSETRON 2MG/ML, 2ML IVPush PRN (12:00)
[2017-04-17] MEDS ORDERED: NITROGLYCERIN 0.4 MG BOTTLE (25 TABS) SL PRN (12:00)
[2017-04-17] MEDS ORDERED: ENALAPRILAT 1.25 MG/ML, 2ML IVPush PRN (12:00)
[2017-04-17] MEDS ORDERED: PHARMACOKINETIC MONITORING MC PRN (13:00)
[2017-04-17] MEDS ORDERED: BACLOFEN 10 MG TABLET PO PRN (13:00)
[2017-04-17] MEDS ORDERED: VANCOMYCIN PER PHARMACY MC PRN (13:00)
[2017-04-17] MEDS ORDERED: MECLIZINE CHEWABLE 25 MG TAB PO PRN (13:00)
[2017-04-17] MEDS ORDERED: PHARMACOKINETIC CONSULTATION MC ONE (13:00)
[2017-04-17] MEDS: DILTIAZEM 125 MG in SODIUM CHLORIDE 0.9% 100 ML IV PRN ×2 (13:09→20:16)
[2017-04-17] MEDS: PIPERACILLIN/TAZO/PMX 3.375GM 50 ML IV SCH ×2 (13:10→20:16)
[2017-04-17 13:16] LABS: TROPONIN I 0.145 ng/mL (0.000-0.045)
[2017-04-17] MEDS: OXYBUTYNIN CHLORIDE 5 MG TABLET PO SCH ×2 (13:30→20:17)
[2017-04-17] MEDS ORDERED: [UNRECOGNIZED DRUG - REMARK] MC SCH ×2 (13:30)
[2017-04-17] MEDS ORDERED: ACETYLCYSTEINE 10%, 4ML IPPB SCH (15:00)
[2017-04-17] MEDS ORDERED: ALBUTEROL SULFATE 2.5 MG/3 ML ONE (15:41)
[2017-04-17] MEDS: PROPOFOL 100 ML IV PRN (17:00)
[2017-04-17] MEDS ORDERED: ALBUTEROL SULFATE 2.5 MG/3 ML NPPB SCH (17:00)
[2017-04-17] MEDS ORDERED: ALBUTEROL SULFATE 2.5 MG/3 ML NPPB PRN (17:00)
[2017-04-17] MEDS ORDERED: MIDAZOLAM 1 MG/ML, 5ML ONE (17:01)
[2017-04-17] MEDS ORDERED: LIDOCAINE-MPF 1%, 2ML ENDO PRN (17:30)
[2017-04-17] MEDS ORDERED: MIDAZOLAM 1 MG/ML, 5ML IVPush ONE ×2 (17:30)
[2017-04-17] MEDS ORDERED: LACTULOSE 20 GM/30 ML UDC NG PRN (17:30)
[2017-04-17] MEDS: ALBUTEROL/IPRATROPIUM 2.5MG/0.5MG, 3 ML INLINE SCH ×2 (18:00→22:00)
[2017-04-17] MEDS ORDERED: ALBUTEROL/IPRATROPIUM 2.5MG/0.5MG, 3 ML INLINE PRN (18:00)
[2017-04-17 19:36] LABS: TROPONIN I 0.139 ng/mL (0.000-0.045)
[2017-04-17] MEDS: CARBAMAZEPINE 200 MG TABLET PO SCH (20:16)
[2017-04-17] MEDS: METOPROLOL TARTRATE 25 MG TABLET PO SCH (20:17)
[2017-04-17] MEDS: ATORVASTATIN 80 MG TABLET PO SCH (20:17)
[2017-04-17] MEDS: SODIUM CHLORIDE FLUSH 10ML SYR IVF SCH (20:18)
[2017-04-18] MEDS: PIPERACILLIN/TAZO/PMX 3.375GM 50 ML IV SCH ×4 (00:27→18:17)
[2017-04-18 01:00] VITALS: BP 121/78
[2017-04-18] MEDS: PROPOFOL 100 ML IV PRN ×3 (01:55→18:17)
[2017-04-18] MEDS: ALBUTEROL/IPRATROPIUM 2.5MG/0.5MG, 3 ML INLINE SCH ×6 (02:00→22:50)
[2017-04-18] MEDS: ASPIRIN 325 MG TABLET PO SCH (05:27)
[2017-04-18 05:44] LABS: BASOPHILS % (AUTO) 0 % (0-1); EOSINOPHILS % (AUTO) 0 % (1-7); LYMPHOCYTES # (AUTO) 0.91 x10^3/uL (1-3.4); LYMPHOCYTES % (AUTO) 10 % (22-44); MD NO; MEAN CORPUSCULAR HEMOGLOBIN 32.9 pg (27.0-34.8); MEAN CORPUSCULAR HGB CONC 33.5 g/dL (32.4-35.8); MEAN PLATELET VOLUME 9.2 fL (7.4-10.4); MONOCYTES # (AUTO) 0.18 x10^3/uL (0.2-0.8); MONOCYTES % (AUTO) 2 % (2-9); NEUTROPHILS # (AUTO) 8.26 x10^3/uL (1.8-6.8); NEUTROPHILS % (AUTO) 88 % (42-75); PLATELET COUNT 243 x10^3/uL (130-400); RED BLOOD COUNT 3.79 x10^6/uL (3.82-5.3); RED CELL DISTRIBUTION WIDTH 16.4 % (9.6-15.2)
[2017-04-18 05:53] LABS: ALBUMIN 1.9 g/dL (3.4-5.0); ANION GAP 7 mmol/L (5-15); CALCIUM 7.9 mg/dL (8.5-10.1); CHLORIDE 103 mmol/L (98-107)
[2017-04-18 05:58] LABS: ALANINE AMINOTRANSFERASE 179 U/L (12-78); ALKALINE PHOSPHATASE 90 U/L (45-117); BILIRUBIN,TOTAL 0.8 mg/dL (0.2-1.0); CREATININE < 0.15 mg/dL (0.55-1.02); TOTAL PROTEIN 5.4 g/dL (6.4-8.2)
[2017-04-18] MEDS ORDERED: ASPIRIN 325 MG TABLET EC PO SCH (06:00)
[2017-04-18] MEDS ORDERED: PANTOPROZOLE 40MG TABLET PO SCH (07:30)
[2017-04-18] MEDS: SERTRALINE 100MG TABLET PO SCH (08:49)
[2017-04-18] MEDS: SODIUM CHLORIDE FLUSH 10ML SYR IVF SCH ×2 (08:49→21:22)
[2017-04-18] MEDS: FUROSEMIDE 40 MG/4 ML IV SCH (08:49)
[2017-04-18] MEDS: OXYBUTYNIN CHLORIDE 5 MG TABLET PO SCH ×2 (08:49→21:23)
[2017-04-18] MEDS: CLOPIDOGREL 75 MG TABLET PO SCH (08:50)
[2017-04-18] MEDS: PANTOPRAZOLE GRAN. PKT 40 MG PO SCH ×2 (08:50→16:58)
[2017-04-18] MEDS: CARBAMAZEPINE 200 MG TABLET PO SCH ×2 (08:50→21:22)
[2017-04-18] MEDS: FENOFIBRATE 145 MG TABLET PO SCH (08:50)
[2017-04-18] MEDS: METOPROLOL TARTRATE 25 MG TABLET PO SCH ×2 (08:50→21:25)
[2017-04-18] MEDS ORDERED: BUPIVACAINE/PF 0.5% ONE (11:12)
[2017-04-18] MEDS ORDERED: EPINEPHRINE 1 MG/ML, 1ML ONE (11:12)
[2017-04-18] MEDS ORDERED: LIDOCAINE 1%, 50ML ONE (11:41)
[2017-04-18] MEDS ORDERED: AMIODARONE 150 MG in DEXTROSE 5% 100 ML IV ONE (12:30)
[2017-04-18] MEDS ORDERED: FILTER 0.22 MICRON FOR AMIODARONE IV PRN (12:30)
[2017-04-18] MEDS ORDERED: AMIODARONE 900 MG in DEXTROSE 5% 482 ML IV PRN (12:30)
[2017-04-18] MEDS ORDERED: HEPARIN wt. based STROKE protocol MC PRN (12:30)
[2017-04-18] MEDS ORDERED: HEPARIN wt. based STROKE protocol MC SCH (13:00)
[2017-04-18] MEDS ORDERED: CEFTRIAXONE PMX 1GM/50ML 50 ML IV SCH (13:30)
[2017-04-18] MEDS: HEPARIN 25,000 UNITS/500ML PMX 500 ML IV PRN (13:59)
[2017-04-18] MEDS ORDERED: VECURONIUM 10 MG ONE (15:31)
[2017-04-18] MEDS ORDERED: PROPOFOL 10 MG/ML, 100ML IV ONE (15:31)
[2017-04-18] MEDS ORDERED: MIDAZOLAM 1 MG/ML, 5ML ONE (15:31)
[2017-04-18] MEDS ORDERED: LABETALOL 5MG/ML, 20ML IVPush PRN (17:00)
[2017-04-18] MEDS ORDERED: FENTANYL PF 100 MCG/2ML ONE (18:15)
[2017-04-18] MEDS: FENTANYL PF 100 MCG/2ML IVPush PRN ×2 (18:18→21:23)
[2017-04-18] MEDS: ATORVASTATIN 80 MG TABLET PO SCH (21:23)
[2017-04-19] MEDS: PIPERACILLIN/TAZO/PMX 3.375GM 50 ML IV SCH ×4 (01:14→21:11)
[2017-04-19] MEDS: ALBUTEROL/IPRATROPIUM 2.5MG/0.5MG, 3 ML INLINE SCH ×6 (02:20→22:00)
[2017-04-19] MEDS: PROPOFOL 100 ML IV PRN ×3 (04:14→23:52)
[2017-04-19] MEDS: FENTANYL PF 100 MCG/2ML IVPush PRN (04:15)
[2017-04-19 04:48] LABS: BASOPHILS # (AUTO) 0.07 x10^3/uL (0-0.1); BASOPHILS % (AUTO) 1 % (0-1); EOSINOPHILS % (AUTO) 0 % (1-7); LYMPHOCYTES # (AUTO) 1.05 x10^3/uL (1-3.4); LYMPHOCYTES % (AUTO) 9 % (22-44); MD NO; MEAN CORPUSCULAR HEMOGLOBIN 32.8 pg (27.0-34.8); MEAN CORPUSCULAR HGB CONC 33.5 g/dL (32.4-35.8); MEAN PLATELET VOLUME 9.3 fL (7.4-10.4); MONOCYTES # (AUTO) 0.43 x10^3/uL (0.2-0.8); MONOCYTES % (AUTO) 4 % (2-9); NEUTROPHILS # (AUTO) 9.87 x10^3/uL (1.8-6.8); NEUTROPHILS % (AUTO) 87 % (42-75); PLATELET COUNT 245 x10^3/uL (130-400); RED BLOOD COUNT 3.73 x10^6/uL (3.82-5.3); RED CELL DISTRIBUTION WIDTH 16.2 % (9.6-15.2)
[2017-04-19 05:00] LABS: ALBUMIN 1.9 g/dL (3.4-5.0); ANION GAP 9 mmol/L (5-15); CALCIUM 7.6 mg/dL (8.5-10.1); CHLORIDE 96 mmol/L (98-107)
[2017-04-19 05:05] LABS: ALANINE AMINOTRANSFERASE 149 U/L (12-78); ALKALINE PHOSPHATASE 89 U/L (45-117); BILIRUBIN,TOTAL 1.2 mg/dL (0.2-1.0); TOTAL PROTEIN 5.3 g/dL (6.4-8.2)
[2017-04-19] MEDS: ASPIRIN 325 MG TABLET PO SCH (06:11)
[2017-04-19] MEDS ORDERED: DIGOXIN 0.25 MG/ML, 2ML IVPush ONE (09:00)
[2017-04-19] MEDS: FUROSEMIDE 40 MG/4 ML IV SCH (09:37)
[2017-04-19] MEDS: SODIUM CHLORIDE FLUSH 10ML SYR IVF SCH ×2 (09:37→21:11)
[2017-04-19] MEDS: PANTOPRAZOLE GRAN. PKT 40 MG PO SCH ×2 (09:37→18:12)
[2017-04-19] MEDS: METOPROLOL TARTRATE 25 MG TABLET PO SCH ×2 (09:38→21:12)
[2017-04-19] MEDS: SERTRALINE 100MG TABLET PO SCH (09:38)
[2017-04-19] MEDS: CLOPIDOGREL 75 MG TABLET PO SCH (09:39)
[2017-04-19] MEDS: FENOFIBRATE 145 MG TABLET PO SCH (09:40)
[2017-04-19] MEDS: CARBAMAZEPINE 200 MG TABLET PO SCH ×2 (09:40→21:12)
[2017-04-19] MEDS: OXYBUTYNIN CHLORIDE 5 MG TABLET PO SCH ×2 (09:46→21:12)
[2017-04-19] MEDS ORDERED: POTASSIUM CHLORIDE 20 MEQ TAB.ER.PRT PO ONE (12:00)
[2017-04-19] MEDS ORDERED: MAGNESIUM SULFATE PMX 2GM/50ML 50 ML IV ONE (12:00)
[2017-04-19 12:45] LABS: ALBUMIN 1.7 g/dL (3.4-5.0); ANION GAP 9 mmol/L (5-15); CALCIUM 6.9 mg/dL (8.5-10.1); CHLORIDE 94 mmol/L (98-107); CREATININE 0.22 mg/dL (0.55-1.02)
[2017-04-19 12:48] LABS: ALKALINE PHOSPHATASE 89 U/L (45-117); TOTAL PROTEIN 5.1 g/dL (6.4-8.2)
[2017-04-19] MEDS ORDERED: SODIUM CHLORIDE 0.9% 1,000ML IVBOLUS ONE (13:00)
[2017-04-19 13:04] LABS: ALANINE AMINOTRANSFERASE 140 U/L (12-78)
[2017-04-19] MEDS: DIGOXIN 0.25 MG/ML, 2ML IVPush SCH ×2 (16:18→21:12)
[2017-04-19] MEDS: ATORVASTATIN 80 MG TABLET PO SCH (21:12)
[2017-04-19] MEDS: HEPARIN 25,000 UNITS/500ML PMX 500 ML IV PRN (22:55)
[2017-04-20] MEDS: ALBUTEROL/IPRATROPIUM 2.5MG/0.5MG, 3 ML INLINE SCH ×2 (02:00→06:45)
[2017-04-20] MEDS: PIPERACILLIN/TAZO/PMX 3.375GM 50 ML IV SCH ×2 (02:21→09:16)
[2017-04-20 04:00] VITALS: BP 121/63
[2017-04-20 04:28] LABS: BASOPHILS # (AUTO) 0.02 x10^3/uL (0-0.1); BASOPHILS % (AUTO) 0 % (0-1); EOSINOPHILS # (AUTO) 0.01 x10^3/uL (0-0.4); EOSINOPHILS % (AUTO) 0 % (1-7); LYMPHOCYTES # (AUTO) 1.01 x10^3/uL (1-3.4); LYMPHOCYTES % (AUTO) 10 % (22-44); MD NO; MEAN CORPUSCULAR HEMOGLOBIN 33.1 pg (27.0-34.8); MEAN CORPUSCULAR HGB CONC 33.8 g/dL (32.4-35.8); MEAN CORPUSCULAR VOLUME 98.1 fL (80-100); MEAN PLATELET VOLUME 9.5 fL (7.4-10.4); MONOCYTES # (AUTO) 0.28 x10^3/uL (0.2-0.8); MONOCYTES % (AUTO) 3 % (2-9); NEUTROPHILS # (AUTO) 9.31 x10^3/uL (1.8-6.8); NEUTROPHILS % (AUTO) 88 % (42-75); PLATELET COUNT 247 x10^3/uL (130-400); RED BLOOD COUNT 3.77 x10^6/uL (3.82-5.3)
[2017-04-20 04:44] LABS: ALANINE AMINOTRANSFERASE 131 U/L (12-78); ALBUMIN 1.7 g/dL (3.4-5.0); ANION GAP 8 mmol/L (5-15); CALCIUM 7.3 mg/dL (8.5-10.1); CHLORIDE 92 mmol/L (98-107); CREATININE 0.19 mg/dL (0.55-1.02); TRIGLYCERIDES 140 mg/dL (50-200)
[2017-04-20 04:46] LABS: ALKALINE PHOSPHATASE 82 U/L (45-117); BILIRUBIN,TOTAL 0.7 mg/dL (0.2-1.0); TOTAL PROTEIN 5.2 g/dL (6.4-8.2)
[2017-04-20] MEDS ORDERED: ASPIRIN 81 MG TABLET CHEW PO SCH (06:00)
[2017-04-20] MEDS ORDERED: ASPIRIN 81 MG TABLET EC PO SCH (06:00)
[2017-04-20] MEDS ORDERED: MAGNESIUM SULFATE PMX 2GM/50ML 50 ML IV ONE (08:30)
[2017-04-20] MEDS ORDERED: POTASSIUM CHLORIDE 40 MEQ in SODIUM CHLORIDE 0.9% 500 ML IV ONE (08:30)
[2017-04-20] MEDS ORDERED: POTASSIUM CHLORIDE 10% 40 MEQ/30 ML UDC NG SCH (08:30)
[2017-04-20] MEDS ORDERED: DIGOXIN 0.25 MG/ML, 2ML IVPush SCH (09:00)
[2017-04-20] MEDS: PANTOPRAZOLE GRAN. PKT 40 MG PO SCH (09:19)
[2017-04-20] MEDS: FUROSEMIDE 40 MG/4 ML IV SCH (09:20)
[2017-04-20] MEDS: SODIUM CHLORIDE FLUSH 10ML SYR IVF SCH (09:20)
[2017-04-20] MEDS: OXYBUTYNIN CHLORIDE 5 MG TABLET PO SCH (09:21)
[2017-04-20] MEDS: CLOPIDOGREL 75 MG TABLET PO SCH (09:21)
[2017-04-20] MEDS: METOPROLOL TARTRATE 25 MG TABLET PO SCH (09:21)
[2017-04-20] MEDS: SERTRALINE 100MG TABLET PO SCH (09:22)
[2017-04-20] MEDS: CARBAMAZEPINE 200 MG TABLET PO SCH (09:22)
[2017-04-20] MEDS: FENOFIBRATE 145 MG TABLET PO SCH (09:22)
[2017-04-20] MEDS ORDERED: LORazepam 2 MG/ML, 1ML ONE (10:26)
[2017-04-20] MEDS: FENTANYL PF 100 MCG/2ML IVPush PRN ×7 (10:31→22:05)
[2017-04-20] MEDS ORDERED: FENTANYL PF 100 MCG/2ML IVPush PRN (11:00)
[2017-04-20] MEDS: LORazepam 2 MG/ML, 1ML IV PRN ×5 (14:41→23:13)
[2017-04-20] MEDS: ATROPINE OPHTH SOLN 1%, 2ML PO PRN ×2 (18:13→19:29)
[2017-04-21] MEDS: FENTANYL PF 100 MCG/2ML IVPush PRN ×4 (00:18→11:16)
[2017-04-21] MEDS: LORazepam 2 MG/ML, 1ML IV PRN ×2 (04:37→05:42)
[2017-04-21] MEDS ORDERED: HYDROmorphone 10 MG in SODIUM CHLORIDE 0.9% 245 ML IVPB PRN (05:00)
[2017-04-21] MEDS: ATROPINE OPHTH SOLN 1%, 2ML PO PRN (09:43)
[2017-04-22] MEDS ORDERED: HYDROmorphone 10 MG in SODIUM CHLORIDE 0.9% 245 ML IVPB PRN (05:00)
== END 2017-04-21 15:52 | disposition expired | DRG 166 ==
LOC: ED 08:59 → EDIP 10:36 → CCU 12:31 → 3NW 04-20 13:00
PROVIDERS: ADMIT Internal Medicine; ATTEND Internal Medicine
PROC: 0B9J8ZX Drainage of Left Lower Lung Lobe, Via Natural or Artificial Opening Endoscopic, Diagnostic (ICD-10-PCS; principal; 2017-04-18)
PROC: 5A1945Z Respiratory Ventilation, 24-96 Consecutive Hours (ICD-10-PCS; 2017-04-18)
PROC: 0BH17EZ Insertion of Endotracheal Airway into Trachea, Via Natural or Artificial Opening (ICD-10-PCS; 2017-04-18)
PROC: 5A1935Z Respiratory Ventilation, Less than 24 Consecutive Hours (ICD-10-PCS; 2017-04-20)
DX: J96.20 Acute and chronic respiratory failure, unspecified whether with hypoxia or hypercapnia (principal); E43 Unspecified severe protein-calorie malnutrition; Z99.11 Dependence on respirator [ventilator] status; J18.9 Pneumonia, unspecified organism; I11.0 Hypertensive heart disease with heart failure; I48.91 Unspecified atrial fibrillation; I50.9 Heart failure, unspecified; R18.8 Other ascites; I69.354 Hemiplegia and hemiparesis following cerebral infarction affecting left non-dominant side; J98.19 Other pulmonary collapse; M48.56XA Collapsed vertebra, not elsewhere classified, lumbar region, initial encounter for fracture; N39.0 Urinary tract infection, site not specified; Z68.1 Body mass index [BMI] 19.9 or less, adult; J98.11 Atelectasis; J43.9 Emphysema, unspecified; E03.9 Hypothyroidism, unspecified; E05.20 Thyrotoxicosis with toxic multinodular goiter without thyrotoxic crisis or storm; E78.5 Hyperlipidemia, unspecified; E87.6 Hypokalemia; F17.210 Nicotine dependence, cigarettes, uncomplicated; G89.29 Other chronic pain; Z51.5 Encounter for palliative care; Z87.11 Personal history of peptic ulcer disease; Z90.710 Acquired absence of both cervix and uterus; Z99.3 Dependence on wheelchair; Z90.49 Acquired absence of other specified parts of digestive tract; Z66 Do not resuscitate
CPT/HCPCS: 31624; 36415; 36600; 71010; 71045; 71260; 76536; 80053; 82803; 83605; 83735; 83880; 84100; 84145; 84478; 84484; 85025; 85520; 85610; 87040; 87070; 87081; 87107; 87205; 93005; 94002; 94003; 94640; 96361; 96365; 96375; J0171; J0696; J1170; J1644; J1940; J2250; J2543; J2704; J3010; J3480; J3490; J7608; J7613; J7620; Q9967; J0282; J1160; J2060; J3475; J7040; J7050; J7060